=== PATIENT | female | born 1960 | race Caucasian/White ===

== ENCOUNTER 2017-05-20 16:21 | Inpatient (IN) | payer OTHER ==
[~2017-05-20] VITALS: Ht 149.9 cm; Wt 94.4 kg
--- NOTE | 2017-05-20 16:51 | NUR ---
PT PRESENTS TO ED WITH C/O OF LOWER BACK PAIN THAT RADIATES TO LLQ ABD PAIN X 1.5 HOURS. PT REPORTS NAUSE, BUT DENIES VOMITING. PT DENIES DIFFICULTY URINATING. PTS REPORTS PT HAD JUST EATEN A CARNE ASADA TACO PRIOR TO ONSET OF PAIN. PT CHANGED INTO GOWN, CONNECTED TO CARDIORESP MONITORS, AWAITING EVAL BY
[2017-05-20 17:27] LABS: BASOPHIL % 0.7 % (0-2); PLATELET COUNT 150 x10^3mcL (130-400)
[2017-05-20 17:38] LABS: CALCIUM 9.2 mg/dL (8.5-10.1); CARBON DIOXIDE 26.2 mmol/L (21-32); CHLORIDE SERUM 104 mmol/L (98-107); CREATININE SERUM 0.9 mg/dL (0.6-1.0); GFR1 > 60 mL/min; GLUCOSE SERUM 134 mg/dL (74-106); POTASSIUM SERUM 3.6 mmol/L (3.5-5.1); SODIUM SERUM 142 mmol/L (136-145)
[2017-05-20 17:43] LABS: ALBUMIN 3.8 g/dL (3.4-5.0); ALKALINE PHOSPHATASE 87 U/L (46-116); ALT/SGPT 119 U/L (14-59); AST/SGOT 77 U/L (15-37); BILIRUBIN TOTAL 0.42 mg/dL (0.20-1.00); TOTAL PROTEIN, SERUM 7.4 g/dL (6.4-8.2); URIC ACID 6.4 mg/dL (2.6-6.0)
--- NOTE | 2017-05-20 17:46 | NUR ---
VERIFIED WITH COUSIN AND PT THAT COUSIN WILL DRIVE PT HOME VIA PRIVATE AUTO BEFORE [employer], MEDICATIONS ADMINISTERED PER MD ORDER, PLEASE SEE EMAR, PT TOLERATED WELL, PT RESTING IN BED IN A POSITION OF COMFORT ON FULL MONITORS, WILL CONTINUE TO MONITOR
--- NOTE | 2017-05-20 17:56 | NUR ---
WARM BLANKET AND PILLOW PROVIDED FOR COMFORT, COUSIN AT BEDSIDE, CALL LIGHT WITHIN REACH, WILL CONTINUE TO MONITOR
--- NOTE | 2017-05-20 18:30 | NUR ---
PT REPORTS PAIN DECREASED TO 4/10 AT THIS TIME, PT AMBULATORY WITH STEADY GAIT TO RESTROOM AT THIS TIME
--- NOTE | 2017-05-20 18:46 | NUR ---
PT REPORTS PAIN INCREASED AFTER COMING BACK FROM RESTROOM, STS ONLY WENT TO URINATE, PT STS A LOT OF PAIN AT THIS TIME, PT MEDICATED PER MD ORDER, LPLEASE SEE EMAR, PT COUSIN AT BEDSIDE, PT IN NO ACUTE DISTRESS
--- NOTE | 2017-05-20 19:53 | NUR ---
1900 - REPORT RECEIVED FROM PREVIOUS SHIFT, PATIENT IS ALERT AND ORIENTED X3, WITH NO MEDICAL HISTORY, ALLERGIC TO PCN. C/O LEFT FLANK PAIN. TO BE ADMITTED FOR RENAL STONE. 1919 - REFUSED NORCO PO FOR PAIN. 1929 - RESTED COMFORTABLE, VOICED NO C/O AT THIS TIME. 1949 - REPORT GIVEN TO KELSIE LOPEZ. PREPARED TRANSPORT PATIENT TO FLOOR WITH MONITOR.
--- NOTE | 2017-05-20 20:00 | NUR ---
REC'D PT FROM ER VIA [facility]. PT IS AAOX4. TELE #10 NSR. RESP EVEN AND UNLABORED. NO SOB NOTED. PT C/O 02/12 LEFT FLANK PAIN. ABD SOFT. BS ACTIVE X4. C/O NAUSEA. IV NOTED TO RFA. INTACT AND PATENT. ORIENTED PT TO CALL LIGHT. BED IN LOWEST POSITION. WILL ENDORSE TO PRIMARY RN.
[2017-05-20 20:13] VITALS: BP 149/71
[2017-05-20 20:17] VITALS: BP 149/71
[2017-05-20 20:21] LABS: T3 TOTAL 1.3 ng/mL
[2017-05-20 20:26] LABS: CHOLESTEROL/HDL RATIO 4.3; MAGNESIUM 2.1 mg/dL (1.8-2.4); PHOSPHOROUS 3.9 mg/dL (2.5-4.9)
[2017-05-20 20:48] LABS: FREE T4 1.15 ng/dL (0.76-1.46); FREE THYROXINE INDEX 3.7 ug/dL (1.4-4.5)
--- NOTE | 2017-05-20 21:21 | NUR ---
PT. C/O INTERMITTENT ABD/FLANK PAIN, 10/10 WHEN PRESENT PER PT. PRN MORPHINE AND ZOFRAN IVP GIVEN ORDERED. WILL MONITOR.
--- NOTE | 2017-05-21 00:03 | NUR ---
PT. STATED THAT SHE HAD VERY BAD LT. FLANK PAIN BECAUSE SHE NEEDED TO URINATE. AFTER GOING TO THE BATHROOM SHE DENIES FEELING ANY MORE PAIN. URINE STRAINED, NO STONES NOTED THUS FAR. PRN MORPHINE, IVP, GIVEN ORDERED. WILL MONITOR,
[2017-05-21 05:30] VITALS: BP 106/45
--- NOTE | 2017-05-21 05:43 | NUR ---
PT. C/O LT. FLANK PAIN, 03/15. DENIES NAUSEA AT THIS TIME. PRN MORPHINE GIVEN ORDERED.
--- NOTE | 2017-05-21 07:32 | NUR ---
CANCELLATION REQUESTED FOR ECHOCARDIOGRAM
[2017-05-21 07:52] LABS: BASOPHIL % 0.4 % (0-2); PLATELET COUNT 132 x10^3mcL (130-400); RED CELL DISTRIBUTION WIDTH 13.6 % (11.5-14.5)
--- NOTE | 2017-05-21 07:53 | NUR ---
RECEIVED PT LAYING IN BED AWAKE AND ALERT. STATES THAT SHE CURRENTLY IS NOT EXPERIENCING ANY PAIN AT THIS TIME. RESPIRATIONS EVEN AND UNLABORED. STATES THAT SHE IS HUNGRY, BUT IS CURRENTLY NPO. PROVIDED ICE CHIPS. WILL FOLLOW UP WITH RESIDENT TO SEE WHAT PLAN OF CARE IS SO WE CAN GIVE PT A BETTER IDEA OF WHEN SHE CAN EAT. CALL LIGHT WITHIN REACH. BED IN LOWEST POSITION . WILL CONTINUE TO MONITOR
--- NOTE | 2017-05-21 08:30 | NUR ---
AM ROUNDS DONE. PER DR. VERDE, PT WILL STAY FOR CONTINUED MONITORING, AND CONTINUE FOR IV FLUIDS, FLOMAX, AND ABX AND THEN POSSIBLY D/C TOMORROW. PT ALERT AND ORIENTED AND AGREES TO PLAN OF CARE
[2017-05-21 08:52] VITALS: BP 88/45
[2017-05-21 08:56] LABS: CALCIUM 8.4 mg/dL (8.5-10.1); CREATININE SERUM 1.4 mg/dL (0.6-1.0); MAGNESIUM 1.9 mg/dL (1.8-2.4); PHOSPHOROUS 3.8 mg/dL (2.5-4.9); POTASSIUM SERUM 3.9 mmol/L (3.5-5.1)
--- NOTE | 2017-05-21 09:01 | NUR ---
PT HAD BP OF 86/[address] ROCA IS AWARE. MAY POSSIBLY BE FROM THE MORPHINE SHE RECEIVED LAST NIGHT AND BEING NPO. PT DENIES HEADACHE DIZZINESS OR BLURRED VISION AND WAS SITTING AT EDGE OF BED. DR. ROCA OERDERED TO CONTINUE MONITORING AND RECHECK AFTER 30 MINUTES. PT IS RECEIVED IV FLUIDS AT 150ML/HR BUT WILL DROP DOWN TO 100ML PT NOW HAS A DIET ORDER. CALL LIGHT WITHIN REACH. BED IN LOWEST POSITION. WILL CONTINUE TO MONITOR
[2017-05-21 12:18] VITALS: BP 107/60
--- NOTE | 2017-05-21 12:45 | NUR ---
PT C/O SEVERE ABDOMINAL PAIN 05/15. ENCOURAGED TO REPOSITION FOR COMFORT AND TO TAKE DEEP BREATHES. GIVEN MORPHINE IVP PRN. BP WAS 117/66. ENCOURAGED PT TO SEEK ASSISTANCE WITH PAIN WHILE THE PAIN IS STILL AT A MILD TO MODERATE LEVEL BECAUSE IT IS EASIER TO MANAGE. FAMILY AT BEDSIDE. APPEARED RECEPTIVE
--- NOTE | 2017-05-21 13:40 | NUR ---
PT C/O LITTLE PAIN RELIEF WELL HAVING A TEMP OF 100.4. COOLING MEASURES INITIATE, TYLENOL PO PRN GIVEN, EXCESS BLANKETS REMOVED, AC TURNED UP. DR. ROCA AWARE AND DID FACE TO FACE WITH PT
[2017-05-21 16:26] VITALS: BP 98/54
--- NOTE | 2017-05-21 16:36 | NUR ---
NOTED SWELLING TO IV SITE ALONG WITH COLDNESS UPON PALPATION. PT DENIES PAIN TO THE SITE. FLUIDS STOPPED. WILL INTIATE NEW ACCESS
--- NOTE | 2017-05-21 19:37 | NUR ---
RECEIVED PT IN BED C/O ABSD PAIN 01/13 NORCO GIVEN ORDERED. PT'S AAOX4 [place] SPEAKING ONLY , LUNG SOUNDS DININISHES , ABD SOFT TENDER TO TOUCH , BS ACTIVE X4, PT'S ON TELE NUMBER 10 THAT SHOWS NSR , PIV INTACT INFUSING WELL.
--- NOTE | 2017-05-21 19:55 | NUR ---
PATIENT'S PLAN OF CARE WAS DISCUSSED AND REVIEWED WITH IN FLIGHT REFUELING OPERATOR: MABEL HENDERSON I HAVE REVIEWED THE DATA COLLECTION BY IN FLIGHT REFUELING OPERATOR (NAME): MABEL HENDERSON ENTERED ON (DATE/TIME): 05/21/171944 I CONCUR WITH THE DATA AND ANY EXCEPTIONS OR COMMENTS ARE LISTED BELOW: AGREE WITH ASSESSMENTS.
[2017-05-21 21:55] VITALS: BP 103/53
--- NOTE | 2017-05-22 01:48 | NUR ---
PT'S IN BED WITH EYES CLOSE , PIV INTACT INFUSING WELL , TELE NSR .
--- NOTE | 2017-05-22 03:39 | NUR ---
PT VOIDED 750ML OF TEA COLOR URINE STRAINED THE URINE AND NOTED SMALL DARK STONE , WILL NOTIFY MD, PT DENY PAIN AT THE MOMENT , WILL CON'T TO MONITOR PT.
[2017-05-22 05:55] VITALS: BP 102/58
--- NOTE | 2017-05-22 06:25 | NUR ---
PT'S IN BED AWAKE DENY PAIN AT THE MOMENT , PIV INTACT INFUSING WELL ,TELE NSR , ALL DUE MEDS GIVEN NO REACTION NOTED, WILL CON'T TO STRAINED ALL THE URINE ORDERED .
[2017-05-22 06:27] LABS: BASOPHIL % 0.5 % (0-2); RED CELL DISTRIBUTION WIDTH 13.2 % (11.5-14.5)
[2017-05-22 06:43] LABS: CALCIUM 8.1 mg/dL (8.5-10.1); CARBON DIOXIDE 24.4 mmol/L (21-32); CREATININE SERUM 1.1 mg/dL (0.6-1.0); PHOSPHOROUS 3.3 mg/dL (2.5-4.9); PLATELET COUNT 107 x10^3mcL (130-400); POTASSIUM SERUM 3.8 mmol/L (3.5-5.1)
--- NOTE | 2017-05-22 07:30 | NUR ---
PATIENT IN SITTING UP ON THE SIDE OF THE BED EATING BREAKFAST TRAY. ALERT ORIENTED, YAKUT SPEAKING. TELE 10 NSR. LUNGS CLEAR ON ROOM AIR. IVF INFUSING WELL. PATIENT IS STRAINING URINE. PER NOC NURSE AND PATIENT, PATIENT WAS ABLE TO PASS A STONE LAST NOC. AMBULATES TO THE BATHROOM AD ELISHA. NO ACUTE DISTRESS NOTED. WILL CONTINUE TO MONITOR.
--- NOTE | 2017-05-22 09:03 | NUR ---
DR VERDE AND MEDICAL TEAM INTO SEE PATIENT AND DISCUSS PLAN OF CARE TO INCLUDE D/C HOME PLAN FOR LATER THIS AFTERNOON.
[2017-05-22 09:41] VITALS: BP 122/57
--- NOTE | 2017-05-22 09:43 | NUR ---
PATIENT IS IN BED, C/O FLANK PAIN 8/10 ON THE PATIENT SCALE. MEDICATED WITH NORCO PO ORDERED, WILL MONITOR FOR EFFECT.
--- NOTE | 2017-05-22 10:44 | NUR ---
URINE COLLECTED FOR UA AND SENT TO THE LAB.
[2017-05-22 11:44] LABS: UA SPECIFIC GRAVITY 1.025 (1.005-1.035); microscopic required? YES; urine erythrocyte 3+ (NEGATIVE)
[2017-05-22 11:53] LABS: AMPHETAMINE QUAL UR NONE DETECTED (NEG <=1000)
--- NOTE | 2017-05-22 13:22 | NUR ---
PATIENT REMAINS IN BED. PER PATIENT HER FLANK PAIN HAS SUBSIDED AFTER THE NORCO AND TORADOL WERE GIVEN. TOLERATING LUNCH TRAY WELL. VISITOR AT BEDSIDE. PATIENT TO D/C HOME TODAY. WILL CONTINUE TO MONITOR.
[2017-05-22] MEDS ORDERED: FLO4 PO (13:29)
[2017-05-22] MEDS ORDERED: LIPI20 PO (13:31)
[2017-05-22] MEDS ORDERED: ZES10 PO (13:32)
[2017-05-22] MEDS ORDERED: COL100 PO (13:33)
[2017-05-22] MEDS ORDERED: NORCO1 TA2 PO (13:35)
[2017-05-22] MEDS ORDERED: IBUPROFEN400 MG PO (13:36)
[2017-05-22 14:47] VITALS: BP 112/56
--- NOTE | 2017-05-22 15:45 | NUR ---
PATIENT IS READY FOR D/C HOME. HL AND TELE DC'D. PRESCRIPTION AND DISCHARGE INSTRUCTIONS GIVEN TRANSLATED BY OMANI SPEAKING HAND TILE MAKER AT BEDSIDE. WORK NOTE PROVIDED FOR PATIENT TO DR ROCA. PERSONAL BELONGINGS LIST SIGNED. DM AND MEDIATION EDUCATION PROVIDED. CONDITON APPEARS STABLE AT THIS TIME. PATIENT IS AWAITING RIDE TO PICK HER UP.
== END 2017-05-22 16:07 | disposition home or self-care (01) | DRG 465 ==
LOC: ED 16:21 → DU 19:08
PROVIDERS: Emergency Medicine; ADMIT Family Medicine Sports Medicine
DX: N13.2 Hydronephrosis with renal and ureteral calculous obstruction (principal); N17.0 Acute kidney failure with tubular necrosis; E43 Unspecified severe protein-calorie malnutrition; Z68.41 Body mass index [BMI] 40.0-44.9, adult; K76.0 Fatty (change of) liver, not elsewhere classified; E11.9 Type 2 diabetes mellitus without complications; I10 Essential (primary) hypertension; E78.5 Hyperlipidemia, unspecified; K80.20 Calculus of gallbladder without cholecystitis without obstruction; M47.894 Other spondylosis, thoracic region; E66.01 Morbid (severe) obesity due to excess calories; Z88.0 Allergy status to penicillin; N39.0 Urinary tract infection, site not specified; E87.8 Other disorders of electrolyte and fluid balance, not elsewhere classified; M47.9 Spondylosis, unspecified
CPT/HCPCS: 83880; 84439; J1885; J1956; J2270; J2405; J3010; J7030; Q0092

== ENCOUNTER 2017-08-28 07:33 | Emergency (ER) | payer OTHER ==
[~2017-08-28] VITALS: Ht 162.6 cm; Wt 91.6 kg
[~2017-08-28 07:33] MED LIST: COL100 PO; FLO4 PO; IBUPROFEN400 MG PO; LIPI20 PO; NORCO1 TA2 PO; ZES10 PO
[2017-08-28 07:39] VITALS: Ht 162.6 cm; Wt 91.6 kg
[2017-08-28 08:25] VITALS: BP 128/60
== END 2017-08-28 08:24 | disposition home or self-care (01) ==
LOC: ED 07:33
DX: R04.0 Epistaxis (principal); Z88.0 Allergy status to penicillin